=== PATIENT | female | born 1990 | race Caucasian/White ===

== ENCOUNTER 2017-03-20 09:21 | Emergency (ER) | payer OTHER ==
[~2017-03-20] VITALS: Ht 180.3 cm; Wt 132.9 kg
[2017-03-20 11:06] LABS: BASOPHIL % 0.4 % (0-2); PLATELET COUNT 265 x10^3mcL (130-400)
[2017-03-20 11:07] LABS: RED CELL DISTRIBUTION WIDTH 14.9 % (11.5-14.5)
[2017-03-20 12:25] LABS: CALCIUM 7.7 mg/dL (8.5-10.1); CARBON DIOXIDE 26.2 mmol/L (21-32); CHLORIDE SERUM 105 mmol/L (98-107); CREATININE SERUM 0.9 mg/dL (0.6-1.0); GFR1 > 60 mL/min; GLUCOSE SERUM 84 mg/dL (74-106); POTASSIUM SERUM 3.7 mmol/L (3.5-5.1); SODIUM SERUM 139 mmol/L (136-145)
[2017-03-20 12:29] LABS: ALBUMIN 3.6 g/dL (3.4-5.0); ALKALINE PHOSPHATASE 53 U/L (46-116); ALT/SGPT 16 U/L (14-59); AMYLASE 44 U/L (25-115); AST/SGOT 16 U/L (15-37); BILIRUBIN TOTAL 0.49 mg/dL (0.20-1.00); LIPASE 95 IU/L (73-393); TOTAL PROTEIN, SERUM 7.7 g/dL (6.4-8.2)
[2017-03-20 12:59] VITALS: BP 128/70
== END 2017-03-20 12:59 | disposition home or self-care (01) ==
LOC: ED 09:21
PROVIDERS: Emergency Medicine
DX: R10.31 Right lower quadrant pain (principal)
CPT/HCPCS: 36415; 83880; J1885

== ENCOUNTER 2017-03-31 13:20 | Emergency (ER) | payer OTHER ==
[~2017-03-31] VITALS: Ht 180.3 cm; Wt 131.5 kg
[2017-03-31 16:15] VITALS: BP 157/82
== END 2017-03-31 16:15 | disposition home or self-care (01) ==
LOC: ED 13:20
DX: R19.7 Diarrhea, unspecified (principal)

== ENCOUNTER 2017-07-28 13:43 | Emergency (ER) | payer OTHER ==
[~2017-07-28] VITALS: Ht 180.3 cm; Wt 131.2 kg
[2017-07-28 13:52] VITALS: Ht 180.3 cm; Wt 131.2 kg
[2017-07-28 21:06] LABS: BASOPHIL % 0.4 % (0-2); PLATELET COUNT 339 x10^3mcL (130-400); RED CELL DISTRIBUTION WIDTH 13.9 % (11.5-14.5)
[2017-07-28 21:20] LABS: CALCIUM 6.3 mg/dL (8.5-10.1); CHLORIDE SERUM 103 mmol/L (98-107); CREATININE SERUM 0.9 mg/dL (0.6-1.0); GFR1 > 60 mL/min; GLUCOSE SERUM 103 mg/dL (74-106); POTASSIUM SERUM 3.4 mmol/L (3.5-5.1); SODIUM SERUM 142 mmol/L (136-145)
[2017-07-28 21:24] LABS: ALBUMIN 3.6 g/dL (3.4-5.0); ALKALINE PHOSPHATASE 58 U/L (46-116); ALT/SGPT 19 U/L (14-59); AST/SGOT 14 U/L (15-37); BILIRUBIN TOTAL 0.3 mg/dL (0.20-1.00); MAGNESIUM 1.8 mg/dL (1.8-2.4); TOTAL PROTEIN, SERUM 7.6 g/dL (6.4-8.2)
[2017-07-29 00:52] LABS: CALCIUM 8.5 mg/dL (8.5-10.1); CARBON DIOXIDE 26.1 mmol/L (21-32); CHLORIDE SERUM 105 mmol/L (98-107); CREATININE SERUM 0.8 mg/dL (0.6-1.0); GFR1 > 60 mL/min; GLUCOSE SERUM 112 mg/dL (74-106); POTASSIUM SERUM 3.1 mmol/L (3.5-5.1); SODIUM SERUM 141 mmol/L (136-145)
[2017-07-29 01:35] VITALS: BP 140/79
== END 2017-07-29 01:35 | disposition home or self-care (01) ==
LOC: ED 13:43
PROVIDERS: Emergency Medicine
DX: E83.51 Hypocalcemia (principal); Z85.850 Personal history of malignant neoplasm of thyroid
CPT/HCPCS: J3490; J7040

== ENCOUNTER 2017-10-30 07:10 | Emergency (ER) | payer OTHER ==
[~2017-10-30] VITALS: Ht 180.3 cm; Wt 133.3 kg
[2017-10-30 07:25] VITALS: Ht 180.3 cm; Wt 133.3 kg
[2017-10-30 10:01] VITALS: BP 124/61
== END 2017-10-30 10:01 | disposition home or self-care (01) ==
LOC: ED 07:10
DX: R10.31 Right lower quadrant pain (principal)
CPT/HCPCS: J1885; Q0092

== ENCOUNTER 2018-01-01 12:25 | Emergency (ER) | payer OTHER ==
[~2018-01-01] VITALS: Ht 177.8 cm; Wt 132.0 kg
[2018-01-01 12:31] VITALS: Ht 177.8 cm; Wt 132.0 kg
[2018-01-01 14:28] VITALS: BP 122/71
== END 2018-01-01 14:28 | disposition home or self-care (01) ==
LOC: ED 12:25
DX: R06.02 Shortness of breath (principal); R05 Cough; J45.909 Unspecified asthma, uncomplicated; Z88.1 Allergy status to other antibiotic agents
CPT/HCPCS: J7512; J7613; J7644

== ENCOUNTER 2018-05-25 08:02 | Emergency (ER) | payer OTHER ==
[~2018-05-25] VITALS: Ht 177.8 cm; Wt 135.2 kg
[2018-05-25 08:09] VITALS: Ht 177.8 cm; Wt 135.2 kg
[2018-05-25 09:17] VITALS: BP 125/90
== END 2018-05-25 09:17 | disposition home or self-care (01) ==
LOC: ED 08:02
DX: S80.02XA Contusion of left knee, initial encounter (principal); J45.909 Unspecified asthma, uncomplicated; Z88.1 Allergy status to other antibiotic agents; Z85.850 Personal history of malignant neoplasm of thyroid; Z90.89 Acquired absence of other organs; W18.30XA Fall on same level, unspecified, initial encounter; Y93.89 Activity, other specified; Y92.89 Other specified places as the place of occurrence of the external cause; Y99.8 Other external cause status

== ENCOUNTER 2019-04-16 20:02 | Emergency (ER) | payer OTHER ==
[~2019-04-16] VITALS: Ht 180.3 cm; Wt 133.4 kg
[2019-04-16 20:18] VITALS: BP 132/89; Ht 180.3 cm; Wt 133.4 kg
== END 2019-04-16 20:58 | disposition home or self-care (01) ==
LOC: ED 20:02
DX: L27.0 Generalized skin eruption due to drugs and medicaments taken internally (principal); J45.909 Unspecified asthma, uncomplicated; Z90.89 Acquired absence of other organs; Z88.0 Allergy status to penicillin

== ENCOUNTER 2019-04-20 06:43 | Emergency (ER) | payer OTHER ==
[~2019-04-20] VITALS: Ht 180.3 cm; Wt 134.4 kg
[2019-04-20 06:49] VITALS: Ht 180.3 cm; Wt 134.4 kg
[2019-04-20 08:01] VITALS: BP 120/77
== END 2019-04-20 08:01 | disposition home or self-care (01) ==
LOC: ED 06:43
DX: L08.9 Local infection of the skin and subcutaneous tissue, unspecified (principal); J45.909 Unspecified asthma, uncomplicated; Z88.0 Allergy status to penicillin; Z90.89 Acquired absence of other organs